=== PATIENT | male | born 1965 | race Two or more races ===

== ENCOUNTER → 2025-03-05 | Emergency (ER) | payer OTHER ==
[~2025-03-05] VITALS: Ht 172.7 cm; Wt 104.3 kg
[~2025-03-05] MED LIST: 0.9 % SODIUM CHLORIDE 1,000 ML IV SCH; ACETAMINOPHEN 500 MG GEL..CAP PO ONE; FAMOtidine 10 MG/ML (4ML VIAL) IV PUSH ONE; LABETALOL HCL 200 MG/40 ML VIAL IV ONE; ONDANSETRON HCL 4 MG in 0.9 % SODIUM CHLORIDE 50 ML IV ONE
== END | disposition left against medical advice (07) ==
LOC: ER 17:07
DX: I10 Essential (primary) hypertension (principal)